=== PATIENT | male | born 1945 ===

== ENCOUNTER 2017-07-21 11:55 | Day surgery (SDC) | payer MEDICARE | END 2017-07-21 17:50 | disposition home or self-care (01) | LOC: DS 11:55 | PROVIDERS: ATTEND Ophthalmology | DX: H26.9 Unspecified cataract (principal); Z88.8 Allergy status to other drugs, medicaments and biological substances; Z98.890 Other specified postprocedural states | CPT/HCPCS: A4663; J0171; J1580; J2250; J3010; J3370; J3490; J7030; J7321; V2632 ==